=== PATIENT | female | born 1975 | race Caucasian/White ===

== ENCOUNTER → 2020-09-27 15:29 | Outpatient (CLI) | payer BC, SELFPAY ==
--- NOTE | ~2020-09-27 | MMUS_ITS ---
EXAMINATION: MM diag anton implant BI w rebekah, US breast RT limited HISTORY: Follow-up right breast mass TECHNIQUE: Additional 3-D tomosynthesis images of the right breast were performed and synthetic 2-D i mages were generated. CAD analysis was submitted and interpreted. High resolution right breast ultras ound was performed. COMPARISON: Comparison to multiple prior studies sequentially, with oldest reviewed study dated 08/29. BREAST PARENCHYMAL COMPOSITION: The breasts are heterogenously dense, which may obscure small masses FINDINGS: MAMMOGRAPHIC FINDINGS: . There is architectural distortion in the upper aspect of the right breast on implant displaced medi al lateral and MLO views. These cannot be confirmed on CC view, possibly due to position. ULTRASOUND: Right breast ultrasound: At 12:00, 10 cm from the nipple, there is an oval hypoechoic mass measuring 5 mm with circumscribed margins, parallel orientation, internal vascularity and no significant personal lines insurance agent ior features, likely benign. At 11:00, 4 cm from the nipple, there is a oval hypoechoic mass measurin g 4 mm with central echogenicity, parallel orientation, no significant posterior features. At 10:00, 6 cm from the nipple, there is a 3 mm cyst. At 11:00, 6 cm from the nipple, there is an irregular sha ped hypoechoic structure which is partially cystic and poorly circumscribed. IMPRESSION: 1. Poorly circumscribed hypoechoic mass of the right breast at 11:00, 6 cm from the nipple with irreg ular margins. No definite internal vascularity. This likely corresponds to the area of architectural distortion by mammography. 2. Ultrasound-guided right breast biopsy recommended. BI-RADS category 4, suspicious findings. Reviewed, dictated and finalized at location A. IMPRESSION: 1. Poorly circumscribed hypoechoic mass of the right breast at 11:00, 6 cm from the nipple with irregular margins. No definite internal vascularity. This like ly corresponds to the area of architectural distortion by mammography. 2. Ultrasound-guided right breast biopsy recommended. BI-RADS category 4, suspicious findings.
== END ==
PROVIDERS: Visit Provider Family Medicine
DX: Z12.31 Encounter for screening mammogram for malignant neoplasm of breast (principal); N60.01 Solitary cyst of right breast; R92.8 Other abnormal and inconclusive findings on diagnostic imaging of breast
CPT/HCPCS: 76642; 77062; 77066; G0279

== ENCOUNTER → 2022-07-16 14:08 | Outpatient (CLI) | payer BC, MEDICARE, SELFPAY ==
--- NOTE | ~2022-07-16 | MM_ITS ---
EXAMINATION: MM scrn anton implant BI w rebekah HISTORY: Screening mammogram TECHNIQUE: Craniocaudal and mediolateral oblique 3-D tomosynthesis images with implant displacement a nd synthetic 2-D images were generated. Craniocaudal and mediolateral oblique views of the breasts wi thout implant displacement were obtained using full field digital mammography. CAD analysis was submi tted and interpreted. COMPARISON: 09/27/2020 bilateral diagnostic mammography and limited right breast ultrasound 07/03/2019 limited right breast ultrasound 06/12/2019 right diagnostic mammogram and limited right breast ultrasound 04/08/2019 bilateral implant mammogram examination BREAST PARENCHYMAL COMPOSITION: FINDINGS: Status post bilateral augmentation mammoplasty. Biopsy marker on the right; history of prior benign right breast biopsy. There is no evidence of susp icious mass, calcification, or architectural distortion to suggest malignancy in either breast. There has been no suspicious interval change. IMPRESSION: 1. No mammographic evidence of malignancy. 2. Recommend routine screening mammography in one year. BI-RADS Category 1: Negative Reviewed, dictated and finalized at location A.
== END ==
PROVIDERS: PCP Family Medicine; Visit Provider Family Medicine
DX: R92.8 Other abnormal and inconclusive findings on diagnostic imaging of breast (principal); Z12.31 Encounter for screening mammogram for malignant neoplasm of breast
CPT/HCPCS: 77063; 77067

== ENCOUNTER 2023-08-09 03:50 | Day surgery (SDC) | payer BC, MEDICARE, SELFPAY ==
[2023-07-24 12:30] VITALS: BMI 22.0
--- NOTE | 2023-08-08 14:15 | PM.HPGS ---
History of Present Illness History of Present Illness Consent: Risks, benefits, and alternatives have been discussed and questions answered. Patient agrees to proceed with procedure. Chief complaint: neoplasm screening Narrative: Traci Phipps is a 48 year old female Referred for colon cancer screening. Review of Systems Review of Systems: All systems reviewed & are unremarkable except as noted in HPI and below PMFSH Past Medical History Medical History Androgenic alopecia Cyst of right breast Surgical History Surgical History H/O breast biopsy Family History Family History Father Family history of elevated blood lipids Other Family history of migraine headaches Social History Social History Smoking status: Never smoker Alcohol intake: never Substance use: never Substance use type: does not use Lack of Transportation: No Lack of Food: Never True Current Housing: I Have Housing Concerned About Future Housing: No Difficulty Paying Gas/Electric Bills: No Difficulty Paying for Meds: No Currently Unemployed: No Education: Trade/Vocational Certificate Difficulty w/ Childcare or Family Care: No Living arrangements: with family Additional living arrangements comments: with Spiritual care concerns: No Meds Home Medications and Allergies Home Medications Medication Instructions Recorded Confirmed Type aspirin 81 mg tablet,delayed 81 mg PO DAILY 01/14/20 08/09/23 History release (Adult Low Dose Aspirin) desvenlafaxine succinate 100 mg See Rx Instructions .Route 03/19/22 08/09/23 Rx tablet,extended release 24 hr .COMPLEX #90 tabs estradiol 0.01% (0.1 mg/gram) 0.5 appful vaginal DAILY #42.5 06/21/22 08/09/23 Rx vaginal cream (Estrace) grams topiramate 50 mg tablet 2.5 mg PO BID 06/21/22 08/09/23 History tramadol 50 mg tablet 150 mg PO Q6H PRN pain 06/21/22 07/24/23 History trazodone 50 mg tablet 50 mg PO DAILY PRN sleep 06/21/22 08/09/23 History cyclobenzaprine 10 mg tablet See Rx Instructions .Route 09/10/22 08/09/23 Rx .COMPLEX #270 tabs rizatriptan 10 mg tablet See Rx Instructions PO .COMPLEX 09/19/22 08/09/23 Rx #27 tabs hydrochlorothiazide 12.5 mg tablet 6.25 mg PO DAILY #45 tabs 05/29/23 08/09/23 Rx erenumab-aooe 70 mg/mL 70 mg subcut MONTHLY #3 ea 06/07/23 08/09/23 Rx subcutaneous auto-injector (Aimovig Autoinjector) Allergies Allergy/AdvReac Type Severity Reaction Status Date / Time latex Allergy Mild Hives Verified 08/09/23 10:44 Exam Resp: Auscultation: clear to auscultation bilaterally Cardio: Rate: regular rate Rhythm: regular rhythm GI: GI Palp: Yes Soft to palpation and No Tenderness to palpation present (GI) Assessment and Plan Assessment and plan (1) Colon cancer screening: Code(s): Z12.11 - Encounter for screening for malignant neoplasm of colon Status: Acute Assessment and Plan: Colonoscopy with possible biopsy or polypectomy or cautery or injection of substances.
[2023-08-09 10:25] VITALS: BP 116/74; PULSE 76; RESP 16; TEMP 35.9; O2SAT 100; BMI 23.1
[2023-08-09] MEDS: LACTATED RINGERS 1,000 ML 150 ML IV CONT (10:59)
--- NOTE | 2023-08-09 11:20 | WPDANESEPPF ---
Anes - Initial Pre Proc Eval Procedure: Operation Date: 08/09/23 12:30 Proposed Procedures p Screening Colonoscopy - Yazan Mckeon MD Date/Time: 08/09/23 11:20 Surgeon: Yazan Mckeon MD Pre Op Diagnosis: neoplasm screening Patient Data Age: 48 Gender: F Height: 1.65 m Weight: 63.2 kg Last Vital Signs Temp 96.7 F L 08/09/23 10:25 Pulse 76 08/09/23 10:25 Resp 16 08/09/23 10:25 BP 116/74 08/09/23 10:25 Pulse Ox 100 08/09/23 10:25 O2 Del Method Room Air 08/09/23 10:25 Allergies Allergy/AdvReac Type Severity Reaction Status Date / Time latex Allergy Mild Hives Verified 08/09/23 10:44 Home Medications Medication Instructions Recorded Confirmed Type aspirin 81 mg tablet,delayed 81 mg PO DAILY 01/14/20 08/09/23 History release (Adult Low Dose Aspirin) desvenlafaxine succinate 100 mg See Rx Instructions .Route 03/19/22 08/09/23 Rx tablet,extended release 24 hr .COMPLEX #90 tabs estradiol 0.01% (0.1 mg/gram) 0.5 appful vaginal DAILY #42.5 06/21/22 08/09/23 Rx vaginal cream (Estrace) grams topiramate 50 mg tablet 2.5 mg PO BID 06/21/22 08/09/23 History tramadol 50 mg tablet 150 mg PO Q6H PRN pain 06/21/22 07/24/23 History trazodone 50 mg tablet 50 mg PO DAILY PRN sleep 06/21/22 08/09/23 History cyclobenzaprine 10 mg tablet See Rx Instructions .Route 09/10/22 08/09/23 Rx .COMPLEX #270 tabs rizatriptan 10 mg tablet See Rx Instructions PO .COMPLEX 09/19/22 08/09/23 Rx #27 tabs hydrochlorothiazide 12.5 mg tablet 6.25 mg PO DAILY #45 tabs 05/29/23 08/09/23 Rx erenumab-aooe 70 mg/mL 70 mg subcut MONTHLY #3 ea 06/07/23 08/09/23 Rx subcutaneous auto-injector (Aimovig Autoinjector) Patient hx anesthesia problems: none Family hx anesthesia problems: none Results Review: All pre-operative results and documents have been reviewed as part of the pre-operative evaluation. [facility] Past Medical History Medical History Androgenic alopecia Cyst of right breast Surgical History Surgical History H/O breast biopsy Family History Family History Father Family history of elevated blood lipids Other Family history of migraine headaches Social History Social History (Updated 06/27/23 @ 13:01 by Dianna Leonard MA) Smoking status: Never smoker Alcohol intake: never Substance use: never Substance use type: does not use Lack of Transportation: No Lack of Food: Never True Current Housing: I Have Housing Concerned About Future Housing: No Difficulty Paying Gas/Electric Bills: No Difficulty Paying for Meds: No Currently Unemployed: No Education: Trade/Vocational Certificate Difficulty w/ Childcare or Family Care: No Living arrangements: with family Additional living arrangements comments: with Spiritual care concerns: No Anes - Eval Final PreProcedure Day of Procedure 08/09/23 11:20 Patient weight: normal Heart: regular rate and rhythm Lungs: clear to auscultation Airway: Mallampati scale class II Neurological: alert and oriented Last oral intake: >/= 8 hours ASA classification: II Emergent: no Anesthetic plan: proceed Anesthesia type and monitoring: general GIVS and standard monitoring Results Review: All pre-operative results and documents have been reviewed as part of the pre-operative evaluation. Informed Consent: The patient's anesthetic plan and its attendant risks and benefits were discussed with the patient/family/POA. Questions were solicited and answers provided to the satisfaction of the patient/family/POA.
[2023-08-09 11:46] VITALS: BP 100/56; PULSE 79; RESP 26; O2SAT 100
[2023-08-09 11:56] VITALS: BP 107/62; PULSE 60; RESP 22; O2SAT 100
[2023-08-09 12:06] VITALS: BP 112/68; PULSE 71; RESP 23; O2SAT 100
== END 2023-08-09 12:15 | disposition home or self-care (01) ==
PROVIDERS: PCP Family Medicine; Visit Provider Internal Medicine Gastroenterology
PROC: 0DJD8ZZ Inspection of Lower Intestinal Tract, Via Natural or Artificial Opening Endoscopic (ICD-10-PCS; CPT 45378; principal; 2023-08-09 12:30)
DX: Z12.11 Encounter for screening for malignant neoplasm of colon (principal); D12.3 Benign neoplasm of transverse colon; K64.1 Second degree hemorrhoids; L64.9 Androgenic alopecia, unspecified; Z79.82 Long term (current) use of aspirin
CPT/HCPCS: 45380; 88305; J2704; J7120

== ENCOUNTER 2024-10-28 07:28 | Outpatient (CLI) | payer BC, MEDICARE, SELFPAY ==
--- NOTE | ~2024-10-28 | MM_ITS ---
EXAMINATION: MM scrn anton implant BI w rebekah HISTORY: Screening mammogram TECHNIQUE: Craniocaudal and mediolateral oblique 3-D tomosynthesis images with implant displacement a nd synthetic 2-D images were generated. Craniocaudal and mediolateral oblique views of the breasts wi thout implant displacement were obtained using full field digital mammography. CAD analysis was submi tted and interpreted. COMPARISON: Comparison to multiple prior studies sequentially, with oldest reviewed study dated 08/29. BREAST PARENCHYMAL COMPOSITION: Dense: The breasts are heterogeneously dense, which may obscure small masses FINDINGS: There is no evidence of suspicious mass, calcification, or architectural distortion to sugg est malignancy in either breast. There has been no suspicious interval change. IMPRESSION: 1. No mammographic evidence of malignancy. 2. Recommend routine screening mammography in one year. BI-RADS Category 1: Negative Reviewed, dictated and finalized at location [] [employer]
== END 2024-10-28 07:29 | disposition home or self-care (01) ==
LOC: MICIMG 07:29
PROVIDERS: PCP Family Medicine; Visit Provider Family Medicine
DX: Z12.31 Encounter for screening mammogram for malignant neoplasm of breast (principal)
CPT/HCPCS: 77063; 77067

== ENCOUNTER 2024-11-19 15:13 | Emergency (ER) | payer BC, MEDICARE, SELFPAY ==
[2024-11-19 15:21] VITALS: BP 134/71; PULSE 87; RESP 16; TEMP 36.7; O2SAT 100
--- NOTE | 2024-11-19 15:31 | ED.URI ---
HPI - URI/Sore Throat General Chief Complaint: Upper Respiratory Infection Stated Complaint: drainage/chest congestion Time Seen by Provider: 11/19/24 15:40 History of Present Illness HPI Narrative: 49 y/o female presented for c/o headache, cough, chest congestion and sore throat x6 days. Tested negative for covid. Denies sob, wheezing, n/v/d/f/c. Taking Sudafed. Related Data Home Medications ?Medication ?Instructions ?Recorded ?Confirmed ?Last Taken ?Type aspirin 81 mg tablet,delayed 81 mg PO DAILY 01/14/20 11/16/24 Unknown History release (Adult Low Dose Aspirin) topiramate 50 mg tablet 2.5 mg PO BID 06/21/22 11/16/24 08/09/23 07:30 History trazodone 50 mg tablet 50 mg PO DAILY PRN sleep 06/21/22 11/16/24 Unknown History Allergies Allergy/AdvReac Type Severity Reaction Status Date / Time latex Allergy Mild Hives Verified 11/16/24 13:57 Review of Systems Review of Systems: CONSTITUTIONAL: Denies body aches, fever, chills, or sweats. EYES: Denies visual changes, redness, or discharge. ENT: Denies rhinorrhea, congestion, or otalgia. CARDIOVASCULAR: Denies chest pain, palpitations, or edema. RESPIRATORY: Denies dyspnea. GASTROINTESTINAL: Denies abdominal pain, nausea, vomiting, or diarrhea. SKIN: Denies rash, itching, or wounds. MUSCULOSKELETAL: Denies back pain, joint pain, or myalgia. NEUROLOGIC: Denies headache PMFSH Past Medical History Medical History Fusion, toes Ileus, postoperative Small bowel volvulus Sigmoid volvulus Cyst of right breast Androgenic alopecia Surgical History Surgical History History of bunionectomy of left great toe Status post partial colectomy H/O breast biopsy Family History Family History Father Family history of elevated blood lipids Other Family history of migraine headaches Social History Social History Smoking status: Never smoker Alcohol intake: never Substance use: never Substance use type: does not use Lack of Transportation: No Lack of Food: Never True Current Housing: I Have Housing Concerned About Future Housing: No Difficulty Paying Gas/Electric Bills: No Difficulty Paying for Meds: No Currently Unemployed: No Education: Trade/Vocational Certificate Difficulty w/ Childcare or Family Care: No Living arrangements: with family Additional living arrangements comments: with Spiritual care concerns: No Exam Narrative: GENERAL: mildly Ill-appearing, no acute distress. EYES: conjunctivae clear ENT: Mucous membranes moist. TM pearly mejia with normal light reflex bilaterally; no tragal tenderness. Oropharynx not erythematous without lesions. Tonsils enlarged and without exudate. No drooling, no hoarseness, no trismus, uvula midline. No tripod positioning, hot potato voice, or soft palate swelling. NECK: Supple. No lymphadenopathy CHEST: Clear to auscultation, breath sounds equal. No respiratory distress, speaks in full sentences. HEART: Regular rate and rhythm. No murmur heard. SKIN: Warm, dry, no rash. NEURO: Alert and oriented x3. Course Course Emergency Course: Patient is aware of diagnosis, understands and agrees to treatment plan. Anticipatory guidance given. Patient agrees to follow-up as directed and is aware of reasons to seek care at the emergency department. Portions of this record may have been created with voice recognition software Level of Care: Express Care Visit MDM - URI/Sore Throat MDM Narrative Medical decision making narrative: neg strep result reviewed with pt. will cover for sinus. Advise supportive treatments. Patient is appropriate for outpatient treatment and follow-up. Differential Diagnosis Differential diagnosis: Likely upper respiratory infection, viral infection and pharyngitis Discharge Plan Discharge Clinical Impression: Upper respiratory infection Patient Disposition: Home, Self-Care Condition: Stable Instructions: Antibiotic Form, Rhinosinusitis (ED) Additional Instructions: Rapid strep swab was negative today You will be notified in a few days if the culture comes back positive for strep if symptoms are due to a viral illness, it is not treated with antibiotics. Viral symptoms can be present for up to 10-14 days. Recommend Flonase spray and Zyrtec for sinus congestion Cough syrup may cause drowsiness; avoid driving or take it at night time. Tylenol every 8 hours as needed for pain/fever Soft foods, cool liquids, warm tea. Gargle with warm saltwater twice a day. Chloraseptic spray and throat lozenges. Rest and stay hydrated. --Follow up with your PCP --Go to the ER immediately if you cannot swallow your saliva, trouble breathing/wheezing, throat swelling, pain is persistent and severe Patient Language: Moroccan Prescriptions: New prednisone 20 mg tablet 40 mg PO DAILY 4 Days Qty: 8 0RF amoxicillin-pot clavulanate 875-125 mg tablet 1 tablet PO Q12H 7 Days Qty: 14 0RF No Action topiramate 50 mg tablet 2.5 mg PO BID trazodone 50 mg tablet 50 mg PO DAILY PRN (Reason: sleep) aspirin [Adult Low Dose Aspirin] 81 mg tablet,delayed release (DR/EC) 81 mg PO DAILY cyclobenzaprine 10 mg tablet See Rx Instructions .ROUTE .COMPLEX Qty: 270 3RF Dose Instruction: TAKE 1 TABLET BY MOUTH THREE TIMES DAILY Rx Instructions: TAKE 1 TABLET BY MOUTH THREE TIMES DAILY Aimovig Autoinjector 70 mg/mL auto-injector 70 mg SUB-Q MONTHLY Qty: 3 3RF estradiol [Estrace] 0.01 % (0.1 mg/gram) cream 0.5 appful vaginal DAILY Qty: 42.5 5RF Rx Instructions: for 30 days , then 2 x week rizatriptan 10 mg tablet See Rx Instructions PO .COMPLEX Qty: 27 3RF Rx Instructions: take 1 tab at onset of headache; if no relief may repeat 1 tab after at least 2 hrs; max = 3 tabs/24 hr PO hydrochlorothiazide 12.5 mg tablet 6.25 mg PO DAILY Qty: 45 1RF desvenlafaxine succinate 100 mg tablet extended release 24 hr See Rx Instructions .ROUTE .COMPLEX Qty: 90 1RF Dose Instruction: TAKE 1 TABLET BY MOUTH DAILY Rx Instructions: TAKE 1 TABLET BY MOUTH DAILY tramadol 50 mg tablet 150 mg PO Q6H PRN (Reason: pain) Qty: 30 1RF Follow-up/Referrals: Adan France MD [Primary Care Provider] - Time of Disposition: 15:49
[2024-11-19 15:51] LABS: EDSTREPNEGPOS1 Negative (Negative)
== END 2024-11-19 15:55 | disposition home or self-care (01) ==
PROVIDERS: Emergency Provider Nurse Practitioner Family; PCP Family Medicine
DX: J06.9 Acute upper respiratory infection, unspecified (principal)
CPT/HCPCS: 87081; 87880; 99213; G0463

== ENCOUNTER 2025-02-01 13:53 | Outpatient (CLI) | payer BC, MEDICARE, SELFPAY | END 2025-02-01 13:54 | disposition home or self-care (01) | LOC: GOSHIMG 13:54 | PROVIDERS: PCP Nurse Practitioner Family; Visit Provider Nurse Practitioner Family | DX: G43.019 Migraine without aura, intractable, without status migrainosus (principal) | CPT/HCPCS: 70551 ==

== ENCOUNTER 2025-03-08 01:35 | Day surgery (SDC) | payer BC, MEDICARE, SELFPAY ==
[2024-11-16 14:01] VITALS: BMI 26.6
--- NOTE | 2024-12-06 13:20 | SUR.PREOP ---
Called pt to cancel her procedure on 12/08 due to provider availability. Pt rescheduled to 03/08 at 0900.Pt is a two day prep.
[2025-03-01 11:11] VITALS: BMI 26.6
--- OUTSIDE RECORDS SUMMARY | 2025-03-08 01:39 | XMS_ITS | Referral Summary ---
Author Organization [facility] Address [address] [place] [address] Care Team Providers Care Electrostatic Painter Name Role Phone Adan France MD Primary Care Provider [phone] Encounters Date Type Department Care Team Description 01/14/2025 10:45 AM BAGGAGE CLERK Office Visit [facility] [address] [facility] [address] 6 [place] [address] Peg Craig MD Essential thrombocythemia (HCC) (Primary Dx); Frequent headaches 01/14/2025 10:00 AM BAGGAGE CLERK Lab [facility] - Lab Collection [address] [facility] Floor 5 [place] [address] Essential thrombocythemia (HCC) from Last 3 Months Allergies Active Allergy Reactions Criticality Noted Date Comments Adhesive Blisters High 10/19/2020 Latex Blisters High 10/19/2020 Medications aspirin 81 mg tablet daily. Active carisoprodol (SOMA) 350 mg tabletIndications :Muscle Spasm daily. Active fluticasone (FLONASE) 50 mcg/actuation nasal spray SHAKE LQ AND U 1 TO 2 SPRAYS IEN QD PRN 0 9 Active metaxalone (SKELAXIN) 800 mg tabletIndications :Muscle Spasm 500mg daily Acti ve desvenlafaxine succinate (PRISTIQ) 50 mg 24 hr tablet daily. Active propranolol (INDERAL) 80 mg tablet every 12 hours. Active eletriptan (RELPAX) 40 mg tabletIndications :Migraine PRN Active traZODone (DESYREL) 50 mg tablet as needed Active rizatriptan (MAXALT) 10 mg tablet TK 1 T PO 1 TIME. MAY REPEAT AT 2 HOUR INTERVALS. DO NOT EXCEED 30 MG IN 24 H 9 Active cyclobenzaprine HCl (CYCLOBENZAPRINE ORAL) Take by mouth Active topiramate (TOPAMAX) 50 mg tablet Take 1 tablet (50 mg total) by mouth 2 (two) times a day Active loratadine-pseudo ephedrine (CLARITIN-D 12-hour) 5-120 mg tablet extended release 12 hr 1 tablet every 12 (twelve) hours Active ascorbic acid (VITAMIN C) 1,000 mg tablet Take 1,000 mg by mouth daily Active hydroCHLOROthiazi de (HYDRODIURIL) 12.5 mg tablet Take 0.5 tablets (6.25 mg total) by mouth daily 3 Active estradioL (ESTRACE) 0.01 % (0.1 mg/gram) vaginal cream 0.5 APPFUL VAGINALLY DAILY FOR 30 DAYS , THEN 2 X WEEK 4 Active Aimovig Autoinjector 70 mg/mL auto-injector subcutaneous injection INJECT 70 UNITS UNDER THE SKIN ONCE MONTHLY 4 Active Active Problems Problem Noted Date Diagnosed Date Abnormal mammography 10/19/2020 Essential thrombocythemia 11/08/2016 Immunizations Immunization Administration Dates Next Due Influenza, Quadrivalent, Rec ombinant, Egg Free, Preservative Free, Intramuscular 09/25/2019 Influenza, Quadrivalent, Spl it, Preservative Free, Intramuscular 09/29/2018 Social History Tobacco Use Types Packs/Day Years Used Date Smoking Tobacco: Never Smokeless Tobacco: Never Comments Unknown Sex and Gender Information Value Date Recorded Sex Assigned at Not on file Legal Sex Female 6:16 AM BAGGAGE CLERK Gender Identity Not on file Sexual Orientation Not on file Last Filed Vital Signs Vital Sign Reading Time Taken Comments Blood Pressure 112/64 01/14/2025 11:33 AM BAGGAGE CLERK Pulse 88 01/14/2025 11:33 AM BAGGAGE CLERK Temperature 36.2 C (97.1 F) 01/14/2025 11:33 AM BAGGAGE CLERK Respiratory Rate 16 01/07/2024 10:42 AM BAGGAGE CLERK Oxygen Saturation 95% 01/14/2025 11:33 AM BAGGAGE CLERK Inhaled Oxygen Concentration - - Weight 75.9 kg (167 lb 6.4 oz) 01/14/2025 11:33 AM BAGGAGE CLERK Height 162.2 cm (5' 3.86 ) 01/14/2025 11:[address] Body Mass Index 28.86 01/14/2025 11:33 AM BAGGAGE CLERK Plan of Treatment Not on file Procedures Procedure Name Priority Date/Time Associated Diagnosis Comments EGFR Routine 01/14/2025 10:51 AM BAGGAGE CLERK Essential thrombocythemia (HCC) DIFFERENTIAL AUTO Routine 01/14/2025 10: 51 AM BAGGAGE CLERK Essential thrombocythemia (HCC) COMPREHENSIVE METABOLIC PANEL Routine 01/14/2025 10:51 AM BAGGAGE CLERK Essential thrombocythemia (HCC) CBC WITH AUTO DIFFERENTIAL Routine 01/14/2025 10:51 AM BAGGAGE CLERK Essential thrombocythemia (HCC) LACTATE DEHYDROGENASE Routine 01/14/2025 10:51 AM BAGGAGE CLERK Essential thrombocythemia (HCC) from Last 3 Months Results * eGFR (01/14/2025 10:51 AM BAGGAGE CLERK) eGFR >90 >=60 mL/min/1. 73 m2 Comment: Interpretive Data Reference Interval Normal >/= 90 mL/min/1.73m2 Mildly decreased* 60 - 89 mL/min/1.73m2 Mildly to moderately decreased 45 - 59 mL/min/1.73m2 Moderately to severely decreased 30 - 44 mL/min/1.73m2 Severely decreased 15 - 29 mL/min/1.73m2 Kidney Failure < 15 mL/min/1.73m2 *Relative to young adult level Estimated glomerular filtration rate is determined by the 2020 CKD-EPI equation recommended by the National Kidney Foundation (A Unifying Approach to GFR Estimation: Recommendations of the NKF-ASK Task Force on Reassessing the Inclusion of Race in Diagnosing Kidney Disease, JASN 2020). The CKD-EPI equation should not be used for patients with unstable renal function and has not been validated in children and those over 70. Current interpretive data was last reviewed 2021. Blood 01/14/2025 10:5 1 AM BAGGAGE CLERK 01/14/2025 10:53 AM BAGGAGE CLERK Peg Craig MD LAB BLOOD ORDERABLES Final R esult [facility] One [facility] Department [place] [address] * Differential, auto (01/14/2025 10:51 AM BAGGAGE CLERK) Neutrophil abs 3.7 1.5 - 6.5 K/cumm Comment:Testing performed by : [facility], [address] [place] [phone] Lymphocyte abs 1.6 0.8 - 3.3 K/cumm [facility]ERNER [facility] Comment:Testing performed by : [facility], [address] [place] [phone] Monocyte abs 0.3 0.2 - 0.8 K/cumm [facility]ERNER [facility] Comment:Testing performed by : [facility], [address] [place] [phone] Eosinophil abs 0.1 0.0 - 0.5 K/cumm CERNER [facility] Comment:Testing performed by : [facility], [address] [place] [phone] Basophil abs 0.1 0.0 - 0.1 K/cumm CERNER [facility] Comment:Testing performed by : [facility], [address] [place] [phone] Neutrophil pct 64.3 % CERNER [facility] Comment: Interpretive Data Percent cell count reference ranges are not reported, since discordance with absolute values may lead to misinterpretation of CBC data. Current Interpretive Data was last revised on 2018. Testing performed by: [facility], [address] [place] [phone] Lymphocyte pct 27.1 % [facility]ER [facility] Comment: Interpretive Data Percent cell count reference ranges are not reported, since discordance with absolute values may lead to misinterpretation of CBC data. Current Interpretive Data was last revised on 2018. Testing performed by: [facility], [address] [place] [phone] Monocyte pct 5.9 % JACEK [facility] Comment: Interpretive Data Percent cell count reference ranges are not reported, since discordance with absolute values may lead to misinterpretation of CBC data. Current Interpretive Data was last revised on 2018. Testing performed by: [facility], [address] [place] [phone] Eosinophil pct 1.8 % JACEK COONEY Comment: Interpretive Data Percent cell count reference ranges are not reported, since discordance with absolute values may lead to misinterpretation of CBC data. Current Interpretive Data was last revised on 2018. Testing performed by: [facility], [address] [place] [phone] Basophil pct 0.9 % JACEK COONEY Comment: Interpretive Data Percent cell count reference ranges are not reported, since discordance with absolute values may lead to misinterpretation of CBC data. Current Interpretive Data was last revised on 2018. Testing performed by: [facility], [address] [place] [phone] Blood 01/14/2025 10:5 1 AM BAGGAGE CLERK 01/14/2025 10:52 AM BAGGAGE CLERK Peg Craig MD LAB BLOOD ORDERABLES Final R esult [facility] One [facility] Department [place] [address] * (ABNORMAL) CBC with auto differential (01/14/2025 10:51 AM BAGGAGE CLERK) WBC 5.7 3.8 - 9.9 K/cumm Comment:Testing performed by : [facility], [address] [place] [phone] Hgb 14.1 11.9 - 15.5 g/dL JACEK COONEY Comment:Testing performed by : [facility], [address] [place] [phone] Hct 43.2 35.6 - 45.5 % CERMICHELLE BJ Comment:Testing performed by : [facility], [address] [place], [place] [phone] Plt 737(H) 150 - 400 K/cumm CERMICHELLE BJ Comment:Testing performed by : [facility], [address] [place], [place] [phone] MPV 7.8 6.8 - 10.4 fL CERMICHELLE BJ Comment:Testing performed by : [facility], [address] [place], [place] [phone] RBC 4.77 3.90 - 5.20 M/cumm CERMICHELLE BJ Comment:Testing performed by : [facility], [address] [place], [place] [phone] MCV 90.6 81.3 - 96.4 fL CERMICHELLE [facility] Comment:Testing performed by : [facility], [address] [place], [place] [phone] MCH 29.6 27.1 - 33.3 pg CERMICHELLE [facility] Comment:Testing performed by : [facility], [address] [place] [address] MCHC 32.7 32.3 - 35.7 g/dL CERMICHELLE [facility] Comment:Testing performed by : [facility], [address] [place] [address] RDW CV 13.4 11.1 - 14.9 % [facility] Comment:Testing performed by : [facility], [address] [place], [place] [phone] NRBC abs 0.00 0.00 - 0.01 K/cumm CERMICHELLE [facility] Comment:Testing performed by : [facility], [address] [place], [place] [phone] Blood 01/14/2025 10:5 1 AM BAGGAGE CLERK 01/14/2025 10:52 AM BAGGAGE CLERK Peg Craig MD LAB BLOOD ORDERABLES Final R esult [facility] One [facility] Department [place] [address] * Lactate dehydrogenase (LD) (01/14/2025 10:51 AM BAGGAGE CLERK) Pathologist [facility] Lactate dehydrogenase (LDH) 188 100 - 250 Units/L Blood 01/14/2025 10:5 1 AM BAGGAGE CLERK 01/14/2025 10:53 AM BAGGAGE CLERK Peg Craig MD LAB BLOOD ORDERABLES Final R esult [facility] Department [place] [address] * Comprehensive metabolic panel (01/14/2025 10:51 AM BAGGAGE CLERK) [facility] Sodium 144 135 - 145 mmol/L Potassium, pl 4.9 3.3 - 4.9 mmol/L [facility] Chloride 108 97 - 110 mmol/L [facility] CO2 30 22 - 32 mmol/L [facility] Anion gap 6 2 - 15 mmol/L [facility] BUN 14 6 - 25 mg/dL [facility] Creatinine 0.70 0.60 - 1.10 mg/dL [facility] Glucose 97 70 - 199 mg/dL [facility] Comment: Interpretive Data Fasting glucose >/= 126 mg/dl is diagnostic for diabetes. Fasting is defined as no caloric intake for at least 8 hours. Fasting glucose between 100 mg/dl to 125 mg/dl is diagnostic of prediabetes. In a patient with classic symptoms of hyperglycemia or hyperglycemic crisis, a random glucose >/= 200 mg/dl is diagnostic for diabetes. In the absence of unequivocal hyperglycemia, results should be confirmed by repeat testing. The classification and Diagnosis of Diabetes Diabetes Care 202; 46: S19-S40. Current interpretive data was last revised 2022. Calcium 9.5 8.5 - 10.3 mg/dL [facility] Bilirubin, total 0.2 0.1 - 1.2 mg/dL [facility] Protein, pl 7.2 6.5 - 8.5 g/dL [facility] Albumin 4.4 3.5 - 5.0 g/dL C[facility]ER [facility] Alk phos 81 40 - 130 Units/L [facility]ER [facility] ALT 14 7 - 45 Units/L [facility] AST 21 10 - 45 Units/L [facility] Blood 01/14/2025 10:5 1 AM BAGGAGE CLERK 01/14/2025 10:53 AM BAGGAGE CLERK Peg Craig MD LAB BLOOD ORDERABLES Final R esult [facility] One [facility] Department [place] [address] from Last 3 Months Insurance [employer] [place] G[place] [employer] [place] [employer] [place] Care Teams Electrostatic Painter Relationship Specialty Start Date End Date Adan France MD PCP - General 02/07/17
--- OUTSIDE RECORDS SUMMARY | 2025-03-08 01:39 | XMS_ITS | Clinical Summary ---
Author Organization [facility] Address [address] [place] [address] Care Team Providers Care Modeling Teacher Name Role Phone Adan France MD Primary Care Provider [phone] Allergies Active Allergy Reactions Criticality Noted Date [...] Date Abnormal mammography 10/19/2020 Essential thrombocythemia 11/08/2016 Encounters Date Type Department Care Team Description 01/14/2025 10:45 AM BOX CAR BRACER Office Visit [facility] H[facility]ology [facility] Floor [address] [place] [phone] Peg Craig MD Essential thrombocythemia (HCC) (Primary Dx); Frequent headaches 01/14/2025 10:00 AM BOX CAR BRACER Lab [facility] - Lab Collection [facility] [address] [place] [address] Essential thrombocythemia (HCC) from Last 3 Months Immunizations Immunization Administration Dates Next Due Influenza, Quadrivalent, Rec ombinant, Egg Free, Preservative Free, Intramuscular 09/25/2019 Influenza, Quadrivalent, Spl it, Preservative Free, Intramuscular 09/29/2018 Surgical History Surgery Date Site/Laterality Comments BREAST BIOPSY 12/07/2020 Right Medical History Medical History Date Comments Personal history of diseases of the blood and blood-forming organs and certain disorders involving the immune mechanism History of thrombocytosis - (Added by TW Conv) Social History Tobacco Use Types Packs/Day Years Used Date Smoking Tobacco: Never Smokeless Tobacco: Never Comments Unknown Sex and Gender Information Value Date Recorded Sex Assigned at Not on file Legal Sex Female 6:16 AM BOX CAR BRACER Gender Identity Not on file Sexual Orientation Not on file Obstetrics History Last Filed Vital Signs Vital Sign Reading Time Taken Comments Blood Pressure 112/64 01/14/2025 11:33 AM BOX CAR BRACER Pulse 88 01/14/2025 11:33 AM BOX CAR BRACER Temperature 36.2 C (97.1 F) 01/14/2025 11:33 AM BOX CAR BRACER Respiratory Rate 16 01/07/2024 10:42 AM BOX CAR BRACER Oxygen Saturation 95% 01/14/2025 11:33 AM BOX CAR BRACER Inhaled Oxygen Concentration - - Weight 75.9 kg (167 lb 6.4 oz) 01/14/2025 11:33 AM BOX CAR BRACER Height 162.2 cm (5' 3.86 ) 01/14/2025 11:[address] Body Mass Index 28.86 01/14/2025 11:33 AM BOX CAR BRACER Plan of Treatment Health Maintenance Due Date Last Done Comments Breast Cancer Screening-Mammogram 1973 Cervical Cancer Screening 1973 Colon Cancer Screening-Colonoscopy 1973 Depression Screening 1973 Hepatitis C Screening 1973 DTaP/Tdap/Td Vaccine (1 - Tdap) 1984 Hepatitis B Screening 1991 Regular Well Visit/Exam 18-64 1991 Zoster Vaccine (1 of 2) 2023 Influenza Vaccine (#1) 2024 9, 09/29/2018 Pneumococcal vaccine <65 Aged Out No longer eligible based on patient's age to complete this topic Procedures Procedure Name Priority Date/Time Associated Diagnosis Comments EGFR Routine 01/14/2025 10:51 AM BOX CAR BRACER Essential thrombocythemia (HCC) DIFFERENTIAL AUTO Routine 01/14/2025 10: 51 AM BOX CAR BRACER Essential thrombocythemia (HCC) COMPREHENSIVE METABOLIC PANEL Routine 01/14/2025 10:51 AM BOX CAR BRACER Essential thrombocythemia (HCC) CBC WITH AUTO DIFFERENTIAL Routine 01/14/2025 10:51 AM BOX CAR BRACER Essential thrombocythemia (HCC) LACTATE DEHYDROGENASE Routine 01/14/2025 10:51 AM BOX CAR BRACER Essential thrombocythemia (HCC) from Last 3 Months Results * eGFR (01/14/2025 10:51 AM BOX CAR BRACER) Pathologist [facility] eGFR >90 >=60 mL/min/1. 73 m2 Comment: [...] reviewed 2021. Blood 01/14/2025 10:5 1 AM BOX CAR BRACER 01/14/2025 10:53 AM BOX CAR BRACER us Peg Craig MD LAB BLOOD ORDERABLES Final R esult [facility] One [facility] Department of Laboratories [place], [place] [id number] * Differential, auto (01/14/2025 10:51 AM BOX CAR BRACER) Neutrophil abs 3.7 1.5 - 6.5 K/cumm Comment:Testing performed by : [facility], [address] [place] [phone] Lymphocyte abs 1.6 0.8 - 3.3 K/cumm JACEK COONEY Comment:Testing performed by : [facility], [address] [place] [phone] Monocyte abs 0.3 0.2 - 0.8 K/cumm JACEK COONEY Comment:Testing performed by : [facility], [address] [place] [phone] Eosinophil abs 0.1 0.0 - 0.5 K/cumm JACEK COONEY Comment:Testing performed by : [facility], [address] [place] [phone] Basophil abs 0.1 0.0 - 0.1 K/cumm CERMICHELLE COONEY Comment:Testing performed by : [facility], [address] [place] [phone] Neutrophil pct 64.3 % CERMICHELLE BJ Comment: Interpretive Data Percent cell count reference ranges are not reported, since discordance with absolute values may lead to misinterpretation of CBC data. Current Interpretive Data was last revised on 2018. Testing performed by: [facility], [address] [place] [phone] Lymphocyte pct 27.1 % CERMICHELLE COONEY Comment: Interpretive Data Percent cell count reference ranges are not reported, since discordance with absolute values may lead to misinterpretation of CBC data. Current Interpretive Data was last revised on 2018. Testing performed by: [facility], [address] [place] [phone] Monocyte pct 5.9 % CERMICHELLE BJ Comment: Interpretive Data Percent cell count reference ranges are not reported, since discordance with absolute values may lead to misinterpretation of CBC data. Current Interpretive Data was last revised on 2018. Testing performed by: [facility], [address] [place] [phone] Eosinophil pct 1.8 % CERMICHELLE BJ Comment: Interpretive Data Percent cell count reference ranges are not reported, since discordance with absolute values may lead to misinterpretation of CBC data. Current Interpretive Data was last revised on 2018. Testing performed by: [facility], [address] [place] [phone] Basophil pct 0.9 % CERNER [facility]J Comment: Interpretive Data Percent cell count reference ranges are not reported, since discordance with absolute values may lead to misinterpretation of CBC data. Current Interpretive Data was last revised on 2018. Testing performed by: [facility], [address] [place] [phone] Blood 01/14/2025 10:5 1 AM BOX CAR BRACER 01/14/2025 10:52 AM BOX CAR BRACER us Peg Craig MD LAB BLOOD ORDERABLES Final R esult JACEK [facility] One [facility] Department [place] [address] * (ABNORMAL) CBC with auto differential (01/14/2025 10:51 AM BOX CAR BRACER) WBC 5.7 3.8 - 9.9 K/cumm Comment:Testing performed by : [facility], [address] [place] [address] Hgb 14.1 11.9 - 15.5 g/dL JACEK COONEY Comment:Testing performed by : [facility], [address] [place] [address] Hct 43.2 35.6 - 45.5 % JACEK COONEY Comment:Testing performed by : [facility], [address] [place] [address] Plt 737(H) 150 - 400 K/cumm CERMICHELLE COONEY Comment:Testing performed by : [facility], [address] [place] [address] MPV 7.8 6.8 - 10.4 fL CERMICHELLE COONEY Comment:Testing performed by : [facility], [address] [place] [address] RBC 4.77 3.90 - 5.20 M/cumm JACEK COONEY Comment:Testing performed by : [facility], [address] [place] [address] MCV 90.6 81.3 - 96.4 fL CERMICHELLE COONEY Comment:Testing performed by : [facility], [address] [place] [address] MCH 29.6 27.1 - 33.3 pg CERMICHELLE COONEY Comment:Testing performed by : [facility], [address] [place] [address] MCHC 32.7 32.3 - 35.7 g/dL CERMICHELLE COONEY Comment:Testing performed by : [facility], [address] [place] [phone] RDW CV 13.4 11.1 - 14.9 % JACEK [facility] Comment:Testing performed by : [facility], [address] [place] [phone] NRBC abs 0.00 0.00 - 0.01 K/cumm JACEK [facility] Comment:Testing performed by : [facility], [address] [place] [phone] Blood 01/14/2025 10:5 1 AM BOX CAR BRACER 01/14/2025 10:52 AM BOX CAR BRACER us Peg Craig MD LAB BLOOD ORDERABLES Final R esult Performing Organization Address City/[facility]/ZIP Co de Phone Number [facility] [place] [address] * Lactate dehydrogenase (LD) (01/14/2025 10:51 AM BOX CAR BRACER) Pathologist [facility] Lactate dehydrogenase (LDH) 188 100 - 250 Units/L Blood 01/14/2025 10:5 1 AM BOX CAR BRACER 01/14/2025 10:53 AM BOX CAR BRACER us Peg Craig MD LAB BLOOD ORDERABLES Final R esult [facility] [place] [address] * Comprehensive metabolic panel (01/14/2025 10:51 AM BOX CAR BRACER) Sodium 144 135 - 145 mmol/L Potassium, pl 4.9 3.3 - 4.9 mmol/L [facility] Chloride 108 97 - 110 mmol/L [facility] CO2 30 22 - 32 mmol/L [facility] Anion gap 6 2 - 15 mmol/L [facility] BUN 14 6 - 25 mg/dL [facility] Creatinine 0.70 0.60 - 1.10 mg/dL [facility] Glucose 97 70 - 199 mg/dL [facility] Comment: Interpretive Data Fasting glucose >/= 126 [...] 2022. Calcium 9.5 8.5 - 10.3 mg/dL [facility] Bilirubin, total 0.2 0.1 - 1.2 mg/dL [facility] Protein, pl 7.2 6.5 - 8.5 g/dL [facility] Albumin 4.4 3.5 - 5.0 g/dL [facility] Alk phos 81 40 - 130 Units/L [facility] ALT 14 7 - 45 Units/L [facility] AST 21 10 - 45 Units/L [facility] Blood 01/14/2025 10:5 1 AM BOX CAR BRACER 01/14/2025 10:53 AM BOX CAR BRACER Peg Craig MD LAB BLOOD ORDERABLES Final R esult [facility] One [facility] Department [place] [address] from Last 3 Months Insurance [facility] AETNA MEDICARE GOLD MEDICARE [facility] [employer] MED[employer] GOLD Care Teams Modeling Teacher Relationship Specialty Start Date End Date Adan France MD PCP - General 02/07/17
--- OUTSIDE RECORDS SUMMARY | 2025-03-08 01:39 | XMS_ITS | Clinical Summary ---
Author Organization [facility] Address [address] [place] [address] Phone Care Team Providers Care Replanting Machine Operator Name Role Phone Zari France MD Primary Care Provider [phone] Harvey Martini MD Unavailable Allergies Active Allergy Reactions Criticality Noted Date Comments Latex Other (see Comments) High 10/19/2020 Wound Dressing Adhesive Other (see Comments) High Medications Aimovig 70 MG/ML Solution Auto-injector 70 mg by Intramuscular route every 30 days. 12/26/19 24 Active Topiramate 50 MG Tablet Take 50 mg by mouth 2 times daily. Active cyclobenzaprine (FLEXERIL) 5 MG Tablet Take 5 mg by mouth Daily as needed for Muscle spasms. Active Desvenlafaxine Succinate 50 MG TABLET SR 24 HR Take 50 mg by mouth daily. Active hydroCHLOROthiaz rima 12.5 MG Tablet Take 6.25 mg by mouth daily. Active simethicone (MYLICON) 80 MG Chewable Tablet Take 1 Tablet by mouth every 6 hours as needed for Flatulence or Cramping. 30 Tablet 02/18/20 24 Active aspirin EC 81 MG Tablet Delayed Response daily. Active carisoprodol (SOMA) 350 MG Tablet daily. Active estradiol (ESTRACE) 0.1 MG/GM Cream 0.5 APPFUL VAGINALLY DAILY FOR 30 DAYS , THEN 2 X WEEK 12/27/19 24 Active Eletriptan Hydrobromide 40 MG Tablet PRN Active fluticasone (FLONASE) 50 MCG/ACT Suspension SHAKE LQ AND U 1 TO 2 SPRAYS IEN QD PRN 01/02/20 Active ketorolac (TORADOL) 10 MG Tablet PLEASE SEE ATTACHED FOR DETAILED DIRECTIONS 02/24/20 Active loratadine-pseud oephedrine (CLARITIN-D 12-hour) 5-120 MG TABLET SR 12 HR 1 Tablet every 12 hours. Active Rizatriptan Benzoate 10 MG Tablet TAKE 1 TABLET BY MOUTH AT ONSET OF HEADACHE. MAY REPEAT IN 2 HOURS IF NO RELIEF. MAX 3 TABLETS PER 24 HOURS Active traZODone (DESYREL) 50 MG Tablet as needed Active Active Problems No known active problems Resolved Problems Problem Noted Date Diagnosed Date Resolved Date Cellulitis and abscess of foot 02/18/2024 02/18/2024 Sigmoid volvulus 02/13/2024 02/18/2024 Family History Medical History Relation Name Comments Aneurysm Half-Sister brain Alcohol Abuse Mother No Known Problems Son 1 No Known Problems Son 2 Relation Name Status Comments Father Alive Half-Brother Alive Half-Sister Mother Alive Son 1 Alive Son 2 Alive Social History Tobacco Use Types Packs/Day Years Used Date Smoking Tobacco: Never Smokeless Tobacco: Never Tobacco Cessation:Counseling Given: Not Answered Alcohol Use Standard Drinks/Week Comments Not Currently 0 (1 standard drink = 0.6 oz pur e alcohol) [facility] Utilities Answer Date Recorded In the past 12 months has e [employer], gas, oil, or water [employer] threatened to shut off services in your home? Patient declined 02/13/2024 Social Connection and Isolation Panel [NHANES] A nswer Date Recorded In a typical week, how many times do you talk on the phone with family, friends, or neighbors? Patient declined 02/13/2024 How often do you get togethe r with friends or relatives? Patient declined 02/13/2024 How often do you attend religious or rastafarian serv ices? Patient declined 02/13/2024 Do you belong to any clubs o r organizations such as religious groups, unions, fraternal or athletic groups, or school groups? Patient declined 02/13/2024 How often do you attend meet ings of the clubs or organizations you belong to? Patient declined 02/13/2024 Are you , , di vorced, , never , or living with a partner? Patient declined 02/13/2024 AUDIT-C Answer Date Recorded Q1: How often do you have a drink containing alc ohol? Patient declined 02/13/2024 Q2: How many drinks containi ng alcohol do you have on a typical day when you are drinking? Patient declined 02/13/2024 Frequency of Binge Drinking Not on file 01/30 Overall Financial Resource Strain (CARDIA) Answe r Date Recorded How hard is it for you to pa y for the very basics like food, housing, medical care, and heating? Patient declined 02/13/2024 [facility] - Occupational Stress Questionnaire Answer Date Recorded Do you feel stress - tense, restless, nervous, or anxious, or unable to sleep at night because your mind is troubled all the time - these days? Patient declined 02/13/2024 Exercise Vital Sign Answer Date Recorde d On average, how many days pe r week do you engage in moderate to strenuous exercise (like a brisk walk)? Patient declined On average, how many minutes do you engage in exercise at this level? Patient declined 02/13/2024 Hunger Vital Sign Answer Date Recorded Within the past 12 months, y ou worried that your food would run out before you got the money to buy more. Patient declined Within the past 12 months, t he food you bought just didn't last and you didn't have money to get more. Patient declined PRAPARE - Transportation Answer Date Re corded In the past 12 months, has l ack of transportation kept you from medical appointments or from getting medications? Patient declined 02/13/2024 In the past 12 months, has l ack of transportation kept you from meetings, work, or from getting things needed for daily living? Patient declined 02/13/2024 Housing Stability Vital Sign Answer Foreign e Recorded In the last 12 months, was t here a time when you were not able to pay the mortgage or rent on time? Patient declined 02/13/20 24 In the last 12 months, how many places have you lived? 1 02/13/2024 In the last 12 months, was t here a time when you did not have a steady place to sleep or slept in a residential (including now)? Patient declined 02/13/2024 Sexually Active Control Partners Comments Yes Male Comments No Sex and Gender Information Value Date Recorded Sex Assigned at Not on file Legal Sex Female 11:41 PM CDT Gender Identity Not on file Sexual Orientation Not on file Last Filed Vital Signs Vital Sign Reading Time Taken Comments Blood Pressure 120/82 03/13/2024 9:37 AM CDT Pulse 96 03/13/2024 9:37 AM CDT Temperature 36.3 C (97.3 F) 03/13/2024 9:37 AM CDT Respiratory Rate 16 03/13/2024 9:37 AM CDT Oxygen Saturation 96% 03/13/2024 9:37 AM CDT Inhaled Oxygen Concentration - - Weight 66.7 kg (147 lb) 03/13/2024 9:37 AM CDT Height 165.1 cm (5' 5 ) 03/13/2024 9:37 AM CDT Body Mass Index 24.46 03/13/2024 9:37 AM CDT Plan of Treatment Health Maintenance Due Date Last Done Comments Hepatitis C Virus (HCV) Screening 1973 Mammogram 1973 TdaP Immunization 1973 Hepatitis B Immunization (1 of 3 - 19+ 3-dose series) 1992 Pap Smear 1994 Cervical Cancer Screening (CCS) 2003 HPV/Cotest 2003 Colonoscopy 2018 Colorectal Cancer Screening 2018 Cologuard 2023 Immunochemical Fecal Occult Blood 2023 Pneumococcal Immunization (5 0+ years) (1 of 1 - PCV) 2023 Zoster Immunization (1 of 2) 2023 Influenza Immunization (#1) 2024 102 04/2019, 09/29/2018 SARS-COV-2 Immunization (1 - season) 2024 Respiratory Syncytial Virus (RSV) Immunization (Adult) (1 - 1-dose 75+ series) 2048 Meningococcal Immunization (ACWY) Aged Out No longer eligible b ased on patient's age to complete this topic Rotavirus Immunization Aged Out No lo nger eligible based on patient's age to complete this topic Insurance [facility] Advance Directives * Full Code (Latest Code Status on File) Date Activated Date Inactivated Comments 02/13/2024 6:03 AM 02/18/2024 4:20 PM CPR-Full Lenin atment: FULL ARREST: Attempt Resuscitation/CPR wit intubation and mechanical ventilation. PRE-ARREST: Use entire range of life support measures to stabilize the patient. Care Teams Replanting Machine Operator Relationship Specialty Start Date End Date Zari France MD [facility] [address] [place] [address] PCP - General Family Medicine 02/13/24 Harvey Martini MD [address] [address] Consulting Physician Colon and Rectal Surgery 02/24/24
[2025-03-08 07:49] VITALS: BP 120/93; PULSE 90; RESP 16; TEMP 36.1; O2SAT 100; BMI 26.2
[2025-03-08] MEDS: LACTATED RINGERS 1,000 ML 150 ML IV CONT (07:59)
--- NOTE | 2025-03-08 08:07 | WPDANESEPPF ---
Anes - Initial Pre Proc Eval Procedure: Operation Date: 03/08/25 09:00 Proposed Procedures p Screening Colonoscopy - Padilla Mancilla MD Date/Time: 03/08/25 08:07 Surgeon: Padilla Mancilla MD Pre Op Diagnosis: personal hx colon polyps Patient Data Age: 50 Gender: F Height: 1.65 m Weight: 71.5 kg Last Vital Signs Temp 96.9 F L 03/08/25 07:49 Pulse 90 03/08/25 07:49 Resp 16 03/08/25 07:49 BP 120/93 H 03/08/25 07:49 Pulse Ox 100 03/08/25 07:49 O2 Del Method Room Air 03/08/25 07:49 Allergies Allergy/AdvReac Type Severity Reaction Status Date / Time latex Allergy Mild Hives Verified 03/08/25 07:47 Home Medications ?Medication ?Instructions ?Recorded ?Confirmed ?Type aspirin 81 mg tablet,delayed 81 mg PO DAILY 01/14/20 03/08/25 History release (Adult Low Dose Aspirin) topiramate 50 mg tablet 2.5 mg PO BID 06/21/22 03/08/25 History trazodone 50 mg tablet 50 mg PO DAILY PRN sleep 06/21/22 12/31/24 History cyclobenzaprine 10 mg tablet See Rx Instructions .Route 09/10/22 03/08/25 Rx .COMPLEX #270 tabs estradiol 0.01% (0.1 mg/gram) 0.5 appful vaginal DAILY #42.5 12/27/23 03/08/25 Rx vaginal cream (Estrace) grams desvenlafaxine succinate 100 mg See Rx Instructions .Route 10/20/24 03/08/25 Rx tablet,extended release 24 hr .COMPLEX #90 tabs tramadol 50 mg tablet 150 mg (3 x 50 mg) PO Q6H PRN pain 10/28/24 03/08/25 Rx #30 tabs rizatriptan 10 mg tablet See Rx Instructions PO .COMPLEX 11/26/24 03/08/25 Rx #27 tabs atogepant 60 mg tablet (Qulipta) 60 mg PO DAILY #90 tabs 12/31/24 03/01/25 Rx hydrochlorothiazide 12.5 mg tablet See Rx Instructions .Route 02/09/25 03/08/25 Rx .COMPLEX #45 tabs ketorolac 10 mg tablet See Rx Instructions .Route 02/09/25 03/01/25 Rx .COMPLEX #20 tabs Patient hx anesthesia problems: none Family hx anesthesia problems: none Results Review: All pre-operative results and documents have been reviewed as part of the pre-operative evaluation. [facility] Past Medical History Medical History Fusion, toes Ileus, postoperative Small bowel volvulus Sigmoid volvulus Cyst of right breast Androgenic alopecia Surgical History Surgical History History of bunionectomy of left great toe Status post partial colectomy H/O breast biopsy Family History Family History Father Family history of elevated blood lipids Other Family history of migraine headaches Social History Social History Smoking status: Never smoker Alcohol intake: never Alcohol use details: 1 per month Substance use: never Substance use type: does not use Lack of Transportation: No Lack of Food: Never True Current Housing: I Have Housing Concerned About Future Housing: No Difficulty Paying Gas/Electric Bills: No Difficulty Paying for Meds: No Currently Unemployed: No Education: Trade/Vocational Certificate Difficulty w/ Childcare or Family Care: No Living arrangements: with family Additional living arrangements comments: with Spiritual care concerns: No Anes - Eval Final PreProcedure Day of Procedure 03/08/25 08:07 Patient weight: normal Heart: regular rate and rhythm Lungs: clear to auscultation Airway: Mallampati scale class II Neurological: alert and oriented Last oral intake: >/= 8 hours ASA classification: II Emergent: no Anesthetic plan: proceed Anesthesia type and monitoring: general GIVS and standard monitoring Results Review: All pre-operative results and documents have been reviewed as part of the pre-operative evaluation. Informed Consent: The patient's anesthetic plan and its attendant risks and benefits were discussed with the patient/family/POA. Questions were solicited and answers provided to the satisfaction of the patient/family/POA.
--- NOTE | 2025-03-08 08:15 | PM.HPGS ---
History of Present Illness History of Present Illness Consent: Risks, benefits, and alternatives have been discussed and questions answered. Patient agrees to proceed with procedure. Chief complaint: personal hx colon polyps Narrative: Traci Phipps is a 50 year old female with colon polyp 2022, prep was not optimal. Also h/o bowel resection about 1 year ago because of volvulus Review of Systems Review of Systems: All systems reviewed & are unremarkable except as noted in HPI and below PMFSH Past Medical History Medical History Fusion, toes Ileus, postoperative Small bowel volvulus Sigmoid volvulus Cyst of right breast Androgenic alopecia Surgical History Surgical History History of bunionectomy of left great toe Status post partial colectomy H/O breast biopsy Family History Family History Father Family history of elevated blood lipids Other Family history of migraine headaches Social History Social History Smoking status: Never smoker Alcohol intake: never Alcohol use details: 1 per month Substance use: never Substance use type: does not use Lack of Transportation: No Lack of Food: Never True Current Housing: I Have Housing Concerned About Future Housing: No Difficulty Paying Gas/Electric Bills: No Difficulty Paying for Meds: No Currently Unemployed: No Education: Trade/Vocational Certificate Difficulty w/ Childcare or Family Care: No Living arrangements: with family Additional living arrangements comments: with Spiritual care concerns: No Meds Home Medications and Allergies Home Medications ?Medication ?Instructions ?Recorded ?Confirmed ?Type aspirin 81 mg tablet,delayed 81 mg PO DAILY 01/14/20 03/08/25 History release (Adult Low Dose Aspirin) topiramate 50 mg tablet 2.5 mg PO BID 06/21/22 03/08/25 History trazodone 50 mg tablet 50 mg PO DAILY PRN sleep 06/21/22 12/31/24 History cyclobenzaprine 10 mg tablet See Rx Instructions .Route 09/10/22 03/08/25 Rx .COMPLEX #270 tabs estradiol 0.01% (0.1 mg/gram) 0.5 appful vaginal DAILY #42.5 12/27/23 03/08/25 Rx vaginal cream (Estrace) grams desvenlafaxine succinate 100 mg See Rx Instructions .Route 10/20/24 03/08/25 Rx tablet,extended release 24 hr .COMPLEX #90 tabs tramadol 50 mg tablet 150 mg (3 x 50 mg) PO Q6H PRN pain 10/28/24 03/08/25 Rx #30 tabs rizatriptan 10 mg tablet See Rx Instructions PO .COMPLEX 11/26/24 03/08/25 Rx #27 tabs atogepant 60 mg tablet (Qulipta) 60 mg PO DAILY #90 tabs 12/31/24 03/01/25 Rx hydrochlorothiazide 12.5 mg tablet See Rx Instructions .Route 02/09/25 03/08/25 Rx .COMPLEX #45 tabs ketorolac 10 mg tablet See Rx Instructions .Route 02/09/25 03/01/25 Rx .COMPLEX #20 tabs Allergies Allergy/AdvReac Type Severity Reaction Status Date / Time latex Allergy Mild Hives Verified 03/08/25 07:47 Vital Signs Vital Signs - 24 hr 03/08/25 07:49 Temperature 96.9 F L Pulse Rate 90 Respiratory Rate 16 Blood Pressure 120/93 H Pulse Oximetry 100 Oxygen Delivery Room Air Exam Const: General: comfortable and no acute distress HENMT: Face/Nose/Sinus: Normal nares present Eyes: General: appearance normal, both eyes and all related structures Neck: Neck: no JVD Resp: Auscultation: clear to auscultation bilaterally Cardio: Rate: regular rate Rhythm: regular rhythm GI: Inspection: non-distended GI Palp: Yes Soft to palpation Skin: General skin exam: normal color Neuro: General: gait normal Speech: normal speech Extrem: General: normal to inspection Psych: Mental Status: mental status grossly normal Assessment and Plan Assessment and plan (1) Tubular adenoma of colon: Code(s): D12.6 - Benign neoplasm of colon, unspecified Status: Acute Assessment and Plan: colonoscopy
[2025-03-08 08:42] VITALS: BP 117/82; PULSE 85; RESP 20; O2SAT 97
[2025-03-08 08:52] VITALS: BP 100/62; PULSE 81; RESP 18; O2SAT 97
[2025-03-08 09:02] VITALS: BP 101/57; PULSE 75; RESP 16; O2SAT 100
== END 2025-03-08 09:13 | disposition home or self-care (01) ==
PROVIDERS: PCP Family Medicine; Visit Provider Internal Medicine Gastroenterology
PROC: 0DJD8ZZ Inspection of Lower Intestinal Tract, Via Natural or Artificial Opening Endoscopic (ICD-10-PCS; CPT 45378; principal; 2025-03-08 09:00)
DX: Z09 Encounter for follow-up examination after completed treatment for conditions other than malignant neoplasm (principal); K51.40 Inflammatory polyps of colon without complications; K64.8 Other hemorrhoids; L64.9 Androgenic alopecia, unspecified; Z79.82 Long term (current) use of aspirin; Z79.891 Long term (current) use of opiate analgesic; Z98.890 Other specified postprocedural states; Z98.0 Intestinal bypass and anastomosis status; Z90.49 Acquired absence of other specified parts of digestive tract; Z86.0100 Personal history of colon polyps, unspecified; Z87.19 Personal history of other diseases of the digestive system
CPT/HCPCS: 45385; 88305; J2003; J2704; J7120

== ENCOUNTER 2025-11-01 09:46 | Outpatient (CLI) | payer BC, MEDICARE, SELFPAY ==
--- NOTE | ~2025-11-01 | MM_ITS ---
EXAMINATION: MM screening mammography implant BI w rebekah HISTORY: Screening. TECHNIQUE: Craniocaudal and mediolateral oblique 3-D tomosynthesis images were obtained and synthetic 2-D images were generated. CAD analysis was submitted and interpreted. COMPARISON: 2023, 2021, and 2019 BREAST PARENCHYMAL COMPOSITION: Not Dense: There are scattered areas of fibroglandular FINDINGS: There are prepectoral saline implants. The presence of implants limits the sensitivity of mammography. No suspicious masses are seen. There are no suspicious calcifications. No unexplained architectural distortion is seen. There are no skin or nipple abnormalities identified. There is no adenopathy seen on the images submitted. IMPRESSION: No mammographic evidence to suggest malignancy is seen. The patient may return to screening mammography as per ACR guidelines. BI-RADS 1 - Negative. Reviewed, dictated and finalized at location B. TENDER
== END 2025-11-01 09:47 | disposition home or self-care (01) ==
LOC: MICIMG 09:48
PROVIDERS: PCP Family Medicine; Visit Provider Family Medicine
DX: Z12.31 Encounter for screening mammogram for malignant neoplasm of breast (principal)
CPT/HCPCS: 77063; 77067